=== PATIENT | female | born 1970 | race African-American/Black ===

== ENCOUNTER 2016-09-22 09:54 | Observation (INO) | payer OTHER ==
[2016-09-22] VITALS (7 sets, daily range): BP systolic 99–128; BP diastolic 60–76; PULSE 77–129; RESP 12–20; TEMP 98.7–99; O2SAT 99–100
[~2016-09-22] VITALS: Ht 165.1 cm; Wt 59.5 kg
[~2016-09-22 09:54] MED LIST: ESTR0.5T3 PO
[2016-09-22] MEDS ORDERED: ASPIRIN 81 MG CHEW TAB PO ONE (10:45)
[2016-09-22] MEDS ORDERED: SODIUM CHLORIDE 0.9% FLUSH 10 ML FLUSH IVF PRN (10:45)
--- NOTE | 2016-09-22 10:58 | PD ---
HPI Chief Complaint: Chest Pain Time Seen by Provider: 10:55 Travel History International Travel<30 days: No Contact w/Intl Traveler<30days: No Traveled to known affect area: No History of Present Illness HPI This is a 46-year-old female with history of estrogen replacement, who presents today with complaints of left sided chest tightness with associated shortness breath. The patient reports it as a squeezing, achy sensation in her left chest. There is no radiation. She cannot quantitated on the 0-10 pain scale. She reports the shortness of breath. No cough. Patient has no cardiac history. She still does smoke cigarettes. FORMERLY [facility] Past Medical History Anxiety: Yes Diminished Hearing: No Immunizations Current: Yes Tetanus Vaccination: Unknown ?: Not LMP: 06/2016 Menopausal: Yes : 5 Para: 3 Miscarriage: 1 : 1 Ovarian Cysts: Yes Past Surgical History Genitourinary Surgery: Yes (CYSTECTOMY 1994) Gynecologic Surgery: Yes Social History Alcohol Use: Yes ([facility]) Tobacco Use: No Substance Use: No Allergies-Medications (Allergen,Severity, Reaction): Coded Allergies: No Known Allergies (Verified , 09/22/16) Reported Meds & Prescriptions Reported Meds & Active Scripts Active Estrace (Estradiol) 0.5 Mg Tab 0.5 Mg PO DAILY Review of Systems Except as stated in HPI: all other systems reviewed are Neg General / Constitutional: No: Fever, Chills HENT: No: Headaches, Neck Pain Cardiovascular: Positive: Chest Pain or Discomfort, Tachycardia, No: Palpitations Respiratory: Positive: Shortness of Breath, No: Cough Gastrointestinal: No: Nausea, Vomiting Musculoskeletal: No: Weakness, Pain Skin: No Rash Neurologic: No: Weakness, Dizziness, Headache Psychiatric: No: Anxiety, Depression Physical Exam Narrative GENERAL: Well-developed well-nourished female in no acute respiratory distress. SKIN: Focused skin assessment warm/dry. HEAD: Atraumatic. Normocephalic. EYES: No scleral icterus. No injection or drainage. ENT: No nasal bleeding or discharge. Mucous membranes pink and moist. NECK: Trachea midline. No JVD. CARDIOVASCULAR: Tachycardic with a rate of 100. No murmur appreciated. RESPIRATORY: No accessory muscle use. Clear to auscultation. Breath sounds equal bilaterally. GASTROINTESTINAL: Abdomen soft, non-tender, nondistended. MUSCULOSKELETAL: No obvious deformities. No clubbing. No cyanosis. No edema. NEUROLOGICAL: Awake and alert. No obvious cranial nerve deficits. Motor grossly within normal limits. Normal speech. PSYCHIATRIC: Appropriate mood and affect; insight and judgment normal. Data Data Last Documented VS Vital Signs Date Time Temp Pulse Resp B/P Pulse Ox O2 Delivery O2 Flow Rate FiO2 09/22/16 11:02 100 Room Air 09/22/16 10:58 98.7 94 12 121/72 122/73 Orders Electrocardiogram (09/22/16 ) Basic Metabolic Panel (Bmp) (09/22/16 10:33) Ckmb (Isoenzyme) Profile (09/22/16 10:33) Complete Blood Count With Diff (09/22/16 10:33) D-Dimer (09/22/16 10:33) Magnesium (Mg) (09/22/16 10:33) Prothrombin Time / Inr (Pt) (09/22/16 10:33) Act Partial Throm Time (Ptt) (09/22/16 10:33) Troponin I (09/22/16 10:33) Chest, Single Ap (09/22/16 10:33) Ecg Monitoring (09/22/16 10:33) Bilateral Bp Monitoring (09/22/16 10:33) Iv Access Insert/Monitor (09/22/16 10:33) Oximetry (09/22/16 10:33) Oxygen Administration (09/22/16 10:33) Aspirin Chew (Aspirin Chew) (09/22/16 10:45) Sodium Chloride 0.9% Flush (Ns Flush) (09/22/16 10:45) Admit Order (Ed Use Only) (09/22/16 12:08) Labs Laboratory Tests Test 09/22/16 11:00 White Blood Count 5.2 TH/MM3 Red Blood Count 4.35 MIL/MM3 Hemoglobin 13.6 GM/DL Hematocrit 41.1 % Mean Corpuscular Volume 94.4 FL Mean Corpuscular Hemoglobin 31.3 PG Mean Corpuscular Hemoglobin 33.1 % Concent Red Cell Distribution Width 14.3 % Platelet Count 185 TH/MM3 Mean Platelet Volume 8.4 FL Neutrophils (%) (Auto) 60.2 % Lymphocytes (%) (Auto) 30.1 % Monocytes (%) (Auto) 6.6 % Eosinophils (%) (Auto) 2.4 % Basophils (%) (Auto) 0.7 % Neutrophils # (Auto) 3.1 TH/MM3 Lymphocytes # (Auto) 1.6 TH/MM3 Monocytes # (Auto) 0.3 TH/MM3 Eosinophils # (Auto) 0.1 TH/MM3 Basophils # (Auto) 0.0 TH/MM3 CBC Comment DIFF FINAL Differential Comment Prothrombin Time 10.6 SEC Prothromb Time International 1.0 RATIO Ratio Activated Partial 28.7 SEC Thromboplast Time D-Dimer Quantitative (PE/DVT) LESS THAN 0.19 MG/L FEU Sodium Level 140 MEQ/L Potassium Level 4.0 MEQ/L Chloride Level 109 MEQ/L Carbon Dioxide Level 26.9 MEQ/L Anion Gap 4 MEQ/L Blood Urea Nitrogen 9 MG/DL Creatinine 0.75 MG/DL Estimat Glomerular Filtration 102 ML/MIN Rate Random Glucose 85 MG/DL Calcium Level 9.1 MG/DL Magnesium Level 2.2 MG/DL Total Creatine Kinase 65 U/L Troponin I LESS THAN 0.02 NG/ML MDM Medical Decision Making Medical Screen Exam Complete: Yes Emergency Medical Condition: Yes Differential Diagnosis ACS versus pulmonary embolism versus chest wall pain Narrative Course 46-year-old female presents today with complaints of chest pressure and tightness as well as shortness of breath. The patient has never had discomfort like this before. EKG and cardiac enzymes are within normal limits. D-dimer was negative. Given her age and symptoms, she'll be admitted to the chest pain center for rule out protocol. I discussed with both her and her and they're amenable to the plan. She smokes cigarettes and I counseled her on stopping smoking. Diagnosis Primary Impression: Chest pain Additional Impression: Tobacco abuse Kirit Crawford MD Sep 22, 2016 10:57
--- NOTE | 2016-09-22 10:59 | RADRPT ---
EXAM DATE/TIME: 09/22/2016 10:42 [facility] COMPARISON: No previous studies available for comparison. INDICATIONS : Chest Pain MEDICAL HISTORY : None. SURGICAL HISTORY : None. ENCOUNTER: Initial ACUITY: 1 day PAIN SCORE: 6/10 LOCATION: Left chest FINDINGS: A single view of the chest demonstrates the lungs to be symmetrically aerated without evidence of mas s or infiltrate. Blunting of the right costophrenic angle. The cardiomediastinal contours are unrema rkable. Osseous structures are intact. Scoliotic curvature. CONCLUSION: 1. Blunting of the right costophrenic angle either related to scarring or small effusion. Otherwise, no acute cardiopulmonary disease. Homar Biswas Jr., MD on September 22, 2016 at 10:56 Board Certified Radiologist. This report was verified electronically.
[2016-09-22 11:32] LABS: AUTOMATED NEUTROPHIL # 3.1 TH/MM3 (1.8-7.7); BASOPHIL % 0.7 % (0.0-2.0); EOSINOPHIL # 0.1 TH/MM3 (0-0.4); EOSINOPHIL % 2.4 % (0.0-4.0); HEMATOCRIT 41.1 % (35.0-46.0); HEMO FLAGS DIFF FINAL; LYMPH % 30.1 % (9.0-44.0); LYMPHOCYTE # 1.6 TH/MM3 (1.0-4.8); MEAN CELL VOLUME 94.4 FL (80.0-100.0); MEAN CORPUSCULAR HEMOGLOBIN 31.3 PG (27.0-34.0); MEAN CORPUSCULAR HGB CONC 33.1 % (32.0-36.0); MONO % 6.6 % (0.0-8.0); NEUT % 60.2 % (16.0-70.0); PLATELET COUNT 185 TH/MM3 (150-450); RED BLOOD COUNT 4.35 MIL/MM3 (4.00-5.30); RED CELL DISTRIBUTION WIDTH 14.3 % (11.6-17.2); WHITE BLOOD COUNT 5.2 TH/MM3 (4.0-11.0)
[2016-09-22 11:48] LABS: APTT (PATIENT) 28.7 SEC (24.3-30.1); PROTHROMBIN TIME - PATIENT 10.6 SEC (9.8-11.6)
[2016-09-22 11:50] LABS: ANION GAP 4 MEQ/L (5-15); BICARBONATE 26.9 MEQ/L (21.0-32.0); BLOOD UREA NITROGEN 9 MG/DL (7-18); CHLORIDE 109 MEQ/L (98-107); GLOMERULAR FILTRATION RATE 102 ML/MIN (>89); MAGNESIUM 2.2 MG/DL (1.5-2.5); SODIUM (NA) 140 MEQ/L (136-145)
[2016-09-22 11:56] LABS: CREATINE KINASE 65 U/L (26-192)
[2016-09-22] MEDS ORDERED: ONDANSETRON HCL 4 MG/2 ML VIAL IV PRN (14:00)
[2016-09-22] MEDS ORDERED: SODIUM CHLORIDE 0.9% FLUSH 5 ML FLUSH IVF PRN (14:00)
[2016-09-22] MEDS ORDERED: ACETAMINOPHEN/HYDROcodone 325 MG/7.5 MG TAB PO PRN (14:00)
[2016-09-22] MEDS ORDERED: ACETAMINOPHEN 500 MG CPLT PO PRN (14:00)
--- NOTE | 2016-09-22 14:08 | HHI.HP ---
[facility] Primary Care Physician Karlos Aparicio DO Chief Complaint Chest pain History of Present Illness This is a 46-year-old female that presents to ED via private vehicle complaining of developing a tightness in her chest that began about 5:30 this morning when waking. States worst pain level was 8 out of 10 but currently it as a 3 out of 10. She states improved quite a bit after coming into the ED. She was short of breath and mildly nauseous. No diaphoresis. She also recalled a little dizzy while she was at work. She has history of anxiety and was on metoprolol for that stated that it helped control her heart rate. She states that she is put on estrogen replacement a few months ago and decided to stop taking the metoprolol. She was worried that metoprolol and hormone replacement would not be compatible with each other. She has noticed that her anxiety level has worsened since stopping the metoprolol. Patient does smoke cigarettes. She states she smokes 1-2 cigarettes a day and has done so for about 20 years. Denies recent travel. Denies inspirational chest discomfort. Denies calf pain or swelling. Denies recent illnesses. Review of Systems General: Patient denies fevers, chills recent, and recent travel HEENT: Patient denies headache, sore throat, difficulty swallowing. Cardiovascular: Has the chest discomfort as mentioned above. Denies sensation of heart beating rapidly or irregularly. No syncope. Denies diaphoresis. Respiratory: She was short of breath initially. Denies inspirational chest discomfort. Denies coughing wheezing or hemoptysis. GI: Mild nausea initially. Patient denies vomiting, diarrhea, abdominal pain, bloody stools. Musculoskeletal: Patient denies joint pain or edema. Denies calf pain or edema. Neurovascular: Patient denies numbness, tingling, weakness in extremities. Denies headache. Endocrine: Denies polyuria and polydipsia. Hematologic: Denies easy bruising. Skin: Denies rash or itching. Past Family Social History Allergies: Coded Allergies: No Known Allergies (Verified , 09/22/16) Past Medical History Anxiety and tobacco abuse. Denies hypertension, hyperlipidemia, diabetes, and known CAD. Past Surgical History Ovarian cyst. Reported Medications Reported Meds & Active Scripts Active Estrace (Estradiol) 0.5 Mg Tab 0.5 Mg PO DAILY Active Ordered Medications Current Medications Medications (Trade) Dose Ordered Sig/Maria Eugenia Route Start Time Stop Time Status Last Admin (NS Flush) 2 ml UNSCH PRN IVF 09/22/16 10:45 Family History Denies family history of CAD. Social History Patient smokes 1-2 cigarettes a day and has done so for 20 years. Rarely has alcohol. Denies illicit drugs. She is . Physical Exam Vital Signs Vital Signs Date Time Temp Pulse Resp B/P Pulse Ox O2 Delivery O2 Flow Rate FiO2 09/22/16 13:30 80 17 99/60 99 Room Air 09/22/16 12:00 96 19 99/60 99 Room Air 09/22/16 11:02 100 Room Air 09/22/16 10:58 98.7 94 12 121/72 100 Room Air 122/73 09/22/16 10:33 95 09/22/16 10:10 116 09/22/16 09:55 98.9 129 20 128/76 100 Room Air Physical Exam GENERAL: This is a well-nourished, well-developed patient, in no apparent distress. Patient speaks in clear complete sentences. Patient is pleasant. HEENT: Head is atraumatic and normocephalic. Neck is supple without lymphadenopathy and trachea is midline. No JVD or carotid bruits. CARDIOVASCULAR: Regular rate and rhythm without murmurs, gallops, or rubs. RESPIRATORY: Clear to auscultation. Breath sounds equal bilaterally. No wheezes , rales, or rhonchi. Chest wall is nontender. No use of accessory muscles. GASTROINTESTINAL: Abdomen is nontender, nondistended. Abdomen soft. No obvious pulsatile mass or bruit. No CVA tenderness. Strong femoral pulses bilaterally. Normal bowel sounds in all quadrants. MUSCULOSKELETAL: Patient is moving upper and lower extremities freely. No calf tenderness or edema, no Homans sign. Strong pulses in upper and lower extremities. NEUROLOGICAL: Patient is alert and oriented. Cranial nerves 2-12 are grossly intact. No focal deficits and speech is clear. SKIN: No rash and turgor is normal. Laboratory Laboratory Tests Test 09/22/16 11:00 White Blood Count 5.2 Red Blood Count 4.35 Hemoglobin 13.6 Hematocrit 41.1 Mean Corpuscular Volume 94.4 Mean Corpuscular Hemoglobin 31.3 Mean Corpuscular Hemoglobin 33.1 Concent Red Cell Distribution Width 14.3 Platelet Count 185 Mean Platelet Volume 8.4 Neutrophils (%) (Auto) 60.2 Lymphocytes (%) (Auto) 30.1 Monocytes (%) (Auto) 6.6 Eosinophils (%) (Auto) 2.4 Basophils (%) (Auto) 0.7 Neutrophils # (Auto) 3.1 Lymphocytes # (Auto) 1.6 Monocytes # (Auto) 0.3 Eosinophils # (Auto) 0.1 Basophils # (Auto) 0.0 CBC Comment DIFF FINAL Differential Comment Prothrombin Time 10.6 Prothromb Time International 1.0 Ratio Activated Partial 28.7 Thromboplast Time D-Dimer Quantitative (PE/DVT) LESS THAN 0.19 Sodium Level 140 Potassium Level 4.0 Chloride Level 109 Carbon Dioxide Level 26.9 Anion Gap 4 Blood Urea Nitrogen 9 Creatinine 0.75 Estimat Glomerular Filtration 102 Rate Random Glucose 85 Calcium Level 9.1 Magnesium Level 2.2 Total Creatine Kinase 65 Troponin I LESS THAN 0.02 Result Diagram: 09/22/16 1100 09/22/16 1100 Imaging Last 48 hours Impressions Chest X-Ray 09/22/16 1033 Signed Impressions: Service Date/Time: Thursday, September 22, 2016 10:42 - CONCLUSION: 1. Blunting of the right costophrenic angle either related to scarring or small effusion. Otherwise, no acute cardiopulmonary disease. Homar Biswas Jr., MD Course Initial EKG sinus tachycardia rate of [address] segment depressions or elevations. Assessment and Plan Assessment and Plan * Chest pain: Patient's first EKG and troponin are normal. Patient will be seen by Dr. Rodriguez of cardiology in the chest pain center. She will undergo a Mariusz protocol ETT and likely be discharged if stress test is nonischemic. * Tobacco abuse: Patient counseled on the importance of smoking cessation. Patient is stable at this time. She is agreeable to this plan. Jl Wilkinson Sep 22, 2016 14:08
--- NOTE | 2016-09-22 16:25 | HHI.DCPOC ---
Discharge Care Plan Diagnosis: (1) Chest pain (2) Tobacco abuse Goals to Promote Your Health * To prevent worsening of your condition and complications * To maintain your health at the optimal level Directions to Meet Your Goals Take your medications as prescribed Follow your dietary instruction Follow activity as directed Keep your appointments as scheduled Take your immunizations and boosters as scheduled If your symptoms worsen call your PCP, if no PCP go to Urgent Care Center or Emergency Room Smoking is Dangerous to Your Health. Avoid second hand smoke Call the 24-hour hour crisis hotline for domestic abuse at Jl Wilkinson Sep 22, 2016 16:25
[2016-09-22] MEDS ORDERED: SODIUM CHLORIDE 0.9% FLUSH 5 ML FLUSH IVF SCH (21:00)
--- NOTE | 2016-09-23 14:54 | TR ---
Date Performed: 09/22/2016 Time Performed: 14:56:14 DOCTOR: Qasim Russell DRUG LIST: CLINICAL HISTORY: REASON FOR TEST: Chest pain REASON FOR ENDING: OBSERVATION: CONCLUSION: Mariusz protocol performed. Test stopped when target heart rate reached secondary to l eg fatigue. No chest discomfort. Maximum EK=477 Target HR Achieved=96.0% Maximum HR=890/98 Total Exer cise Time=6:31 COMMENTS: Conclusion: Normal treadmill exercise. No evidence of ischemia.
--- NOTE | 2016-09-23 16:48 | EKG ---
Date Performed: 09/22/2016 Time Performed: 10:25:01 PTAGE: 46 years EKG: SINUS TACHYCARDIA POSSIBLE LEFT ATRIAL ENLARGEMENT ABNORMAL RHYTHM ECG NO PREVIOUS TRACING DOCTOR: Mickey Quezada Interpretating Date/Time 09/23/2016 16:46:52
[2016-11-23] MEDS ORDERED: ESTR0.5T3 PO (12:35)
== END 2016-09-22 17:25 | disposition home or self-care (01) ==
LOC: NEPC 09:54 → NEDA 12:10 → NEPHCDU 14:21
PROVIDERS: ADMIT Internal Medicine Cardiovascular Disease; ATTEND Internal Medicine Cardiovascular Disease
DX: R07.89 Other chest pain (principal); R00.0 Tachycardia, unspecified; F17.210 Nicotine dependence, cigarettes, uncomplicated; Z79.890 Hormone replacement therapy
CPT/HCPCS: 71010; 80048; 82550; 83735; 84484; 85025; 85379; 85610; 85730; 93005; 93017; 99285; G0378

== ENCOUNTER 2017-01-02 15:09 | Emergency (ER) | payer OTHER ==
[~2017-01-02] VITALS: Ht 165.1 cm; Wt 58.0 kg
[2017-01-02 16:20] VITALS: BP 124/65; PULSE 100; RESP 18; TEMP 98; O2SAT 97
[2017-01-02] MEDS ORDERED: FAMOTIDINE 20 MG/2 ML VIAL IV PUSH ONE (17:30)
[2017-01-02] MEDS ORDERED: HYDROmorphone HCL PF 2 MG/ML VIAL IVS ONE (17:30)
[2017-01-02] MEDS ORDERED: ONDANSETRON HCL 4 MG/2 ML VIAL IVP ONE (17:30)
[2017-01-02] MEDS ORDERED: SODIUM CHLORIDE 0.9% FLUSH 10 ML FLUSH IV FLUSH PRN (17:30)
[2017-01-02] MEDS ORDERED: PANTOPRAZOLE SODIUM 40 MG VIAL IVP ONE (17:30)
--- NOTE | 2017-01-02 17:35 | PD ---
HPI Chief Complaint: Abdominal Pain Time Seen by Provider: 17:29 Travel History International Travel<30 days: No Contact w/Intl Traveler<30days: No Traveled to known affect area: No History of Present Illness HPI Patient presents with acute onset of abdominal pain with nausea and vomiting since this morning. Reports loose stools. Denies any urinary symptoms. Denies any hematuria. Denies any blood per stool. Unknown sick contacts. Denies . History of ovarian cystectomy. Last menses 1 month ago. PFSH Past Medical History Anxiety: Yes Heart Rhythm Problems: No Cardiac Catheterization: No Cardiovascular Problems: No High Cholesterol: No Congestive Heart Failure: No Diabetes: No Diminished Hearing: No Heparin Induced Thrombocytopen: No Hypertension: No Immunizations Current: Yes ?: Not LMP: dec 30 Menopausal: Yes : 5 Para: 3 Miscarriage: 1 : 1 Ovarian Cysts: Yes Past Surgical History Coronary Artery Bypass Graft: No Genitourinary Surgery: Yes (CYSTECTOMY 1994) Gynecologic Surgery: Yes Social History Alcohol Use: Yes ([facility]) Tobacco Use: Yes (<1/4ppd) Substance Use: No Allergies-Medications (Allergen,Severity, Reaction): Coded Allergies: No Known Allergies (Verified Adverse Reaction, Unknown, 01/02/17) Reported Meds & Prescriptions Reported Meds & Active Scripts Active Zofran (Ondansetron HCl) 4 Mg Tab 4 Mg PO Q6HR PRN Hydrocodone-Acetaminophen 5-325 mg Tab 1 Tab PO Q4H PRN Estrace (Estradiol) 0.5 Mg Tab 0.5 Mg PO DAILY Review of Systems General / Constitutional: No: Fever Eyes: No: Visual changes HENT: No: Headaches Cardiovascular: No: Chest Pain or Discomfort Respiratory: No: Shortness of Breath Gastrointestinal: Positive: Nausea, Vomiting, Diarrhea, Abdominal Pain Genitourinary: No: Dysuria Musculoskeletal: No: Pain Skin: No Rash Neurologic: No: Weakness Psychiatric: No: Depression Endocrine: No: Polydipsia Hematologic/Lymphatic: No: Easy Bruising Physical Exam Narrative GENERAL: Well-nourished, well-developed patient. SKIN: Focused skin assessment warm/dry. HEAD: Normocephalic. EYES: No scleral icterus. No injection or drainage. NECK: Supple, trachea midline. No JVD or lymphadenopathy. CARDIOVASCULAR: Regular rate and rhythm without murmurs, gallops, or rubs. RESPIRATORY: Breath sounds equal bilaterally. No accessory muscle use. GASTROINTESTINAL: Abdomen soft, diffusely tender right lower quadrant, nondistended. MUSCULOSKELETAL: No cyanosis, or edema. BACK: Nontender without obvious deformity. No CVA tenderness. Data Data Last Documented VS Vital Signs Date Time Temp Pulse Resp B/P (MAP) Pulse Ox O2 Delivery O2 Flow Rate FiO2 01/02/17 18:56 18 01/02/17 18:56 96 119/67 (84) 100 Room Air 01/02/17 16:20 98.0 Orders Orders Complete Blood Count With Diff (01/02/17 17:30) Comprehensive Metabolic Panel (01/02/17 17:30) Lipase (01/02/17 17:30) Lactic Acid (01/02/17 17:30) Prothrombin Time / Inr (Pt) (01/02/17 17:30) Act Partial Throm Time (Ptt) (01/02/17 17:30) Urinalysis - C+S If Indicated (01/02/17 17:30) Ct Abd/Pel W Iv Contrast(Rout) (01/02/17 17:30) Iv Access Insert/Monitor (01/02/17 17:30) Ecg Monitoring (01/02/17 17:30) Oximetry (01/02/17 17:30) Hydromorphone Pf Inj (Dilaudid Pf Inj) (01/02/17 17:30) Ondansetron Inj (Zofran Inj) (01/02/17 17:30) Pantoprazole Inj (Protonix Inj) (01/02/17 17:30) Sodium Chloride 0.9% Flush (Ns Flush) (01/02/17 17:30) Famotidine Inj (Pepcid Inj) (01/02/17 17:30) Ed Urine Pregnancytest Poc (01/02/17 17:30) Sodium Chlor 0.9% 1000 Ml Inj (Ns 1000 M (01/02/17 18:30) Iohexol 350 Inj (Omnipaque 350 Inj) (01/02/17 18:42) Labs Laboratory Tests Test 01/02/17 17:00 01/02/17 17:20 01/02/17 17:42 Urine Collection Type CLEAN CATCH Urine Color YELLOW Urine Turbidity CLEAR Urine pH 6.5 Urine Specific [place] 1.024 Urine Protein NEG mg/dL Urine Glucose (UA) NEG mg/dL Urine Ketones 40 mg/dL Urine Occult Blood SMALL Urine Nitrite NEG Urine Bilirubin NEG Urine Leukocyte Esterase NEG Urine RBC 0-3 /hpf Urine Squamous Epithelial Cells 0-5 /hpf Urine Amorphous Sediment FEW Microscopic Urinalysis Comment CULT NOT INDICATED Urine Collection Time 1700 White Blood Count 13.3 TH/MM3 Red Blood Count 4.23 MIL/MM3 Hemoglobin 13.4 GM/DL Hematocrit 39.5 % Mean Corpuscular Volume 93.3 FL Mean Corpuscular Hemoglobin 31.8 PG Mean Corpuscular Hemoglobin Concent 34.1 % Red Cell Distribution Width 13.4 % Platelet Count 196 TH/MM3 Mean Platelet Volume 8.4 FL Neutrophils (%) (Auto) 92.0 % Lymphocytes (%) (Auto) 4.3 % Monocytes (%) (Auto) 1.9 % Eosinophils (%) (Auto) 0.0 % Basophils (%) (Auto) 1.8 % Neutrophils # (Auto) 12.2 TH/MM3 Lymphocytes # (Auto) 0.6 TH/MM3 Monocytes # (Auto) 0.3 TH/MM3 Eosinophils # (Auto) 0.0 TH/MM3 Basophils # (Auto) 0.2 TH/MM3 CBC Comment DIFF FINAL Differential Comment Prothrombin Time 11.1 SEC Prothromb Time International Ratio 1.0 RATIO Activated Partial Thromboplast Time 30.5 SEC Blood Urea Nitrogen 8 MG/DL Creatinine 0.70 MG/DL Random Glucose 101 MG/DL Total Protein 7.3 GM/DL Albumin 3.6 GM/DL Calcium Level 8.7 MG/DL Alkaline Phosphatase 67 U/L Aspartate Amino Transf (AST/SGOT) 15 U/L Alanine Aminotransferase (ALT/SGPT) 24 U/L Total Bilirubin 0.3 MG/DL Sodium Level 139 MEQ/L Potassium Level 3.7 MEQ/L Chloride Level 107 MEQ/L Carbon Dioxide Level 24.7 MEQ/L Anion Gap 7 MEQ/L Estimat Glomerular Filtration Rate 110 ML/MIN Lipase 66 U/L Lactic Acid Level 2.2 mmol/L MDM Medical Decision Making Medical Screen Exam Complete: Yes Emergency Medical Condition: Yes Differential Diagnosis Viral gastroenteritis, small bowel obstruction, colitis, UTI Narrative Course Assessment and plan discussed with patient bedside. Blood work within normal limits with the exception of a mildly old white count of 13,000. CT the abdomen and pelvis reveals no acute findings with the exception of a 3 cm left ovarian cyst trace free fluid in the pelvis. Minimal elevation of lactic acid is noted. Discussed multiple conditions that could possibly elevate the lactic acid minimally. Discussed sepsis and the possibility of admission for observation. Patient is resting comfortably now and prefers to go home with prophylactic treatment. Sepsis Criteria SIRS Criteria (2 or more): Heart rate over 90, WBC > 35750, < 4000 or > 10% bands Severe Sepsis (+one): Lactate >2 Diagnosis Primary Impression: Ovarian cyst Qualified Codes: N83.202 - Unspecified ovarian cyst, left side Additional Impressions: Nausea Leukocytosis Qualified Codes: D72.829 - Elevated white blood cell count, unspecified Patient Instructions: General Instructions Additional Instructions: Pain medication as needed. Antibiotic prophylactic for minimally elevated white count and lactic acid. pulse has normalized. Discussed follow-up with her PCP to assess progress. Encouraged to return to emergency room with any onset of new symptoms. Med/Other Pt SpecificInfo: Prescription(s) given Scripts Ciprofloxacin (Cipro) 500 Mg Tab 500 MG PO BID for Infection for 10 Days, #20 TAB 0 Refills Prov: Antonio Moe MD 01/02/17 Ondansetron (Zofran) 4 Mg Tab 4 MG PO Q6HR Y for NAUSEA OR VOMITING, #20 TAB 0 Refills Prov: Antonio Moe MD 01/02/17 Hydrocodone-Acetaminophen (Hydrocodone-Acetaminophen) 5-325 mg Tab 1 TAB PO Q4H Y for PAIN, #20 TAB 0 Refills Prov: Antonio Moe MD 01/02/17 Disposition: 01 DISCHARGE HOME Condition: Good Antonio Moe MD Jan 02, 2017 17:35
[2017-01-02 17:50] LABS: AUTOMATED NEUTROPHIL # 12.2 TH/MM3 (1.8-7.7); BASOPHIL # 0.2 TH/MM3 (0-0.2); BASOPHIL % 1.8 % (0.0-2.0); HEMATOCRIT 39.5 % (35.0-46.0); HEMO FLAGS DIFF FINAL; LYMPH % 4.3 % (9.0-44.0); LYMPHOCYTE # 0.6 TH/MM3 (1.0-4.8); MEAN CELL VOLUME 93.3 FL (80.0-100.0); MEAN CORPUSCULAR HEMOGLOBIN 31.8 PG (27.0-34.0); MEAN CORPUSCULAR HGB CONC 34.1 % (32.0-36.0); MONO % 1.9 % (0.0-8.0); PLATELET COUNT 196 TH/MM3 (150-450); RED BLOOD COUNT 4.23 MIL/MM3 (4.00-5.30); RED CELL DISTRIBUTION WIDTH 13.4 % (11.6-17.2); WHITE BLOOD COUNT 13.3 TH/MM3 (4.0-11.0)
[2017-01-02 17:51] LABS: BLOOD, URINE SMALL (NEG); GLUCOSE,URINE NEG (NEG); KETONE, URINE 40 mg/dL (NEG); NITRITE,URINE NEG (NEG); PH, URINE 6.5 (5.0-8.5)
[2017-01-02 17:52] LABS: METHOD OF COLLECTION CLEAN CATCH; URINE COLOR YELLOW (YELLW/STRAW)
[2017-01-02 17:54] VITALS: O2SAT 97
[2017-01-02 17:58] VITALS: BP 131/66; PULSE 86; RESP 18; O2SAT 96
[2017-01-02 17:58] LABS: COMMENT (UR) CULT NOT INDICATED; COMMENT2 (UR) MUCOUS PRESENT; CULTURE IF INDICATED CULT NOT INDICATED; RBC, URINE 0-3 /hpf (0-3); SQUAMOUS EPITHELIAL CELL URINE 0-5 /hpf (0-5)
[2017-01-02 17:59] LABS: CHLORIDE 107 MEQ/L (98-107); POTASSIUM 3.7 MEQ/L (3.5-5.1); SODIUM (NA) 139 MEQ/L (136-145)
[2017-01-02 18:02] LABS: ANION GAP 7 MEQ/L (5-15); BICARBONATE 24.7 MEQ/L (21.0-32.0)
[2017-01-02 18:03] LABS: BLOOD UREA NITROGEN 8 MG/DL (7-18)
[2017-01-02 18:04] LABS: APTT (PATIENT) 30.5 SEC (24.3-30.1); PROTHROMBIN TIME - PATIENT 11.1 SEC (9.8-11.6)
[2017-01-02 18:05] LABS: ALT (GPT) 24 U/L (10-53); AST (GOT) 15 U/L (15-37); GLOMERULAR FILTRATION RATE 110 ML/MIN (>89)
[2017-01-02 18:07] LABS: TOTAL BILIRUBIN ADULT 0.3 MG/DL (0.2-1.0)
[2017-01-02 18:08] LABS: ALKALINE PHOSPHATASE 67 U/L (45-117)
[2017-01-02] MEDS ORDERED: SODIUM CHLOR 0.9% 1000 ML INJ 1,000 ML IV ONE (18:30)
[2017-01-02] MEDS ORDERED: IOHEXOL 350 MG/ML 10 ML VIAL (for RAD DIAG) IVCONTRAST ONE (18:42)
--- NOTE | 2017-01-02 18:51 | RADRPT ---
EXAM DATE/TIME: 01/02/2017 18:35 [facility] COMPARISON: No previous studies available for comparison. INDICATIONS : Right sided abdominal pain. IV CONTRAST: 95 cc Omnipaque 350 (iohexol) IV ORAL CONTRAST: No oral contrast ingested. RADIATION DOSE: 6.62 CTDIvol (mGy) MEDICAL HISTORY : None SURGICAL HISTORY : None. ENCOUNTER: Initial ACUITY: 2 days PAIN SCALE: 6/10 LOCATION: Right abdomen TECHNIQUE: Volumetric scanning of the abdomen and pelvis was performed. Using automated exposure control and ad justment of the mA and/or kV according to patient size, radiation dose was kept as low as reasonably achievable to obtain optimal diagnostic quality images. DICOM format image data is available electro nically for review and comparison. FINDINGS: Lung bases clear except minimal linear atelectasis or scarring. Mild scoliosis. No acute findings in the liver, spleen, adrenals, kidneys or pancreas. Trace free fluid in the pelvis. No bowel obstruction. No adenopathy. 3 cm left ovarian cyst. CONCLUSION: 1. No acute findings in the abdomen. 3 cm left ovarian cyst. Trace free fluid in the pelvis. Liam Baires MD on January 02, 2017 at 18:46 Board Certified Radiologist. This report was verified electronically.
[2017-01-02 18:56] VITALS: BP 119/67; PULSE 96; RESP 18; O2SAT 100
[2017-01-02] MEDS ORDERED: HYDR-3516 PO (19:25)
[2017-01-02] MEDS ORDERED: ZOFR4TAB PO (19:25)
[2017-01-02] MEDS ORDERED: CIPR-9 PO (19:29)
[2017-01-02 20:04] VITALS: BP 123/75
== END 2017-01-02 20:04 | disposition home or self-care (01) ==
LOC: PHED 15:09
DX: N83.202 Unspecified ovarian cyst, left side (principal); D72.829 Elevated white blood cell count, unspecified; F17.200 Nicotine dependence, unspecified, uncomplicated
CPT/HCPCS: 74177; 80053; 81001; 83605; 83690; 84703; 85025; 85610; 85730; 96361; 96374; 96375; 99285; C9113; J1170; J2405; J7030; Q9967